=== PATIENT | male | born 1955 | race Caucasian/White ===

== ENCOUNTER 2019-08-03 19:57 | Emergency (ER) | payer MEDICARE ==
--- NOTE | 2019-08-03 21:16 | ED ---
General Adult HPI - General Chief complaint: GI Bleed Stated complaint: spitting up blood Time Seen by Provider: 08/03/19 20:50 Source: patient Mode of arrival: ambulatory Limitations: no limitations - History of Present Illness Initial comments: Presents to the ED with his for evaluation. Patient states that he has been spitting out blood since about 5:30am this morning. Patient states that he has noted the blood mixed in with his saliva. Patient denies coughing or vomiting up blood. Patient states that he feels that the blood may be coming from his gums. Patient is on warfarin anticoagulation therapy. Patient is also complaining of having left lower leg swelling and pain for the past 3 weeks or so. Patient states that he has had a negative left lower extremity ultrasound (negative for DVT) and x-rays since his left lower leg pain and swelling began. Patient denies trauma or injury, fever or chills, headache, sore throat, dental pain, chest pain, dyspnea, dizziness or lightheadedness, cough or cold symptoms, abdominal pain, nausea or vomiting, diarrhea, bloody or melanotic stool, hematuria or urinary symptoms, decreased urine output, or any other symptoms or complaints. - Related Data Home Medications Medication Instructions Recorded Confirmed ALPRAZolam [Xanax] 0.5 mg PO DAILY PRN 08/03/19 08/03/19 Aspirin EC [Ecotrin Low Dose] 81 mg PO DAILY 08/03/19 08/03/19 Atorvastatin [Lipitor] 80 mg PO HS 08/03/19 08/03/19 Evolocumab [Repatha Syringe] 140 mg SQ Q14D 08/03/19 08/03/19 HYDROcodone/APAP 10-325MG [[place] 1 tab PO Q8H PRN 08/03/19 08/03/19 10-325] Nitroglycerin Sl Tabs [Nitrostat] 0.4 mg SUBLINGUAL Q5M PRN 08/03/19 08/03/19 Sotalol [Betapace] 80 mg PO BID 08/03/19 08/03/19 Tamsulosin HCl [Flomax] 0.4 mg PO HS 08/03/19 08/03/19 Warfarin [Coumadin] 5 mg PO [id number] 08/03/19 08/03/19 Warfarin [Coumadin] 37.5 mg PO MO 08/03/19 08/03/19 amLODIPine [Norvasc] 10 mg PO DAILY 08/03/19 08/03/19 Allergies Allergy/AdvReac Type Severity Reaction Status Date / Time bee venom protein (honey bee) Allergy Anaphylaxis Verified 08/03/19 20:36 Penicillins Allergy Swelling Verified 08/03/19 20:36 morphine AdvReac Nausea & Verified 08/03/19 20:36 Vomiting Review of Systems ROS Statement: Those systems with pertinent positive or pertinent negative responses have been documented in the HPI. ROS Other: All systems not noted in ROS Statement are negative. Past Medical History Past Medical History: Atrial Fibrillation, Hyperlipidemia, Hypertension, Osteoarthritis (OA) History of Any Multi-Drug Resistant Organisms: None Reported Past Surgical History: Coronary Bypass/CABG, Joint Replacement, Orthopedic Surgery Additional Past Surgical History / Comment(s): Neck Past Psychological History: No Psychological Hx Reported Smoking Status: Former smoker Past Alcohol Use History: Occasional Past Drug Use History: None Reported General Exam Limitations: no limitations General appearance: alert, in no apparent distress Head exam: Present: atraumatic, normocephalic Eye exam: Present: normal appearance, EOMI ENT exam: Present: normal oropharynx, mucous membranes moist, other (There is a small amount of blood noted along the gumline of one of the patient's right upper molars) Neck exam: Absent: tenderness Respiratory exam: Present: normal lung sounds bilaterally. Absent: respiratory distress, wheezes, rales, rhonchi Cardiovascular Exam: Present: regular rate, normal rhythm, normal heart sounds, other (Normal radial pulses bilaterally) GI/Abdominal exam: Present: soft. Absent: distended, tenderness Extremities exam: Present: other (Mild left calf tenderness; no left lower extremity swelling is appreciated; normal left dorsalis pedis pulse). Absent: p edal edema Neurological exam: Present: alert, oriented X3. Absent: motor sensory deficit Psychiatric exam: Present: normal affect, normal mood Skin exam: Present: warm, dry, intact, normal color Course Vital Signs 08/03/19 08/03/19 08/04/19 20:05 23:06 00:00 Temperature 98.4 F 98.8 F 98.6 F Pulse Rate 75 53 L 56 L Respiratory 16 17 18 Rate Blood Pressure 146/76 137/83 157/75 O2 Sat by Pulse 95 96 96 Oximetry Medical Decision Making - Medical Decision Making Patient has not had any active oral bleeding while in the ED, and he has not been spitting out any blood while in the ED. I suspect that the patient's reported oral bleeding is coming from the gumline of one of his right upper molars. Patient's INR is 3.0. I have explained to the patient that I do not feel that he should hold his warfarin at this time given that he does not currently have any active bleeding or sign of hemodynamic instability. Patient reports that he recently had a negative left lower extremity ultrasound for DVT, as well as negative left lower leg x-rays. I think that a left lower extremity DVT would be very unlikely given that the patient's INR is 3.0. Patient's creatine kinase is also within normal limits, and I do not suspect rhabdomyolysis. Patient denies development of any new symptoms while in the ED. Patient and are aware of the patient's test results, and patient agrees with discharge home at this time. Patient was clearly explained return and follow-up instructions, and he was instructed to follow up closely with his PCP. Patient feels comfortable with this plan. - Lab Data Result diagrams: 08/03/19 20:56 08/03/19 20:56 Lab Results 08/03/19 08/03/19 08/03/19 Range/Units 20:56 20:56 20:56 WBC 4.6 (3.8-10.6) k/uL RBC 4.05 L (4.30-5.90) m/uL Hgb 12.5 L (13.0-17.5) gm/dL Hct 38.3 L (39.0-53.0) % MCV 94.5 (80.0-100.0) fL MCH 30.9 (25.0-35.0) pg MCHC 32.7 (31.0-37.0) g/dL RDW 13.6 (11.5-15.5) % Plt Count 149 L (150-450) k/uL Neutrophils % 54 % Lymphocytes % 27 % Monocytes % 9 % Eosinophils % 6 % Basophils % 1 % Neutrophils # 2.5 (1.3-7.7) k/uL Lymphocytes # 1.2 (1.0-4.8) k/uL Monocytes # 0.4 (0-1.0) k/uL Eosinophils # 0.3 (0-0.7) k/uL Basophils # 0.1 (0-0.2) k/uL PT (9.0-12.0) sec INR (<1.2) APTT (22.0-30.0) sec Sodium 138 (137-145) mmol/L Potassium 4.1 (3.5-5.1) mmol/L Chloride 104 (98-107) mmol/L Carbon Dioxide 26 (22-30) mmol/L Anion Gap 8 mmol/L BUN 19 (9-20) mg/dL Creatinine 0.80 (0.66-1.25) mg/dL Est GFR (CKD-EPI)AfAm >90 (>60 ml/min/1.73 sqM) Est GFR (CKD-EPI)NonAf >90 (>60 ml/min/1.73 sqM) Glucose 109 H (74-99) mg/dL Plasma Lactic Acid Maulik 0.9 (0.7-2.0) mmol/L Calcium 8.5 (8.4-10.2) mg/dL Total Bilirubin 0.3 (0.2-1.3) mg/dL AST 26 (17-59) U/L ALT 33 (21-72) U/L Alkaline Phosphatase 96 (38-126) U/L Creatine Kinase 59 (55-170) U/L Total Protein 6.9 (6.3-8.2) g/dL Albumin 3.9 (3.5-5.0) g/dL Lipase 41 (23-300) U/L Blood Type Blood Type Confirm Blood Type Recheck Bld Type Recheck Status Antibody Screen Spec Expiration Date 08/03/19 08/03/19 08/03/19 Range/Units 20:56 20:56 20:56 WBC (3.8-10.6) k/uL RBC (4.30-5.90) m/uL Hgb (13.0-17.5) gm/dL Hct (39.0-53.0) % MCV (80.0-100.0) fL MCH (25.0-35.0) pg MCHC (31.0-37.0) g/dL RDW (11.5-15.5) % Plt Count (150-450) k/uL Neutrophils % % Lymphocytes % % Monocytes % % Eosinophils % % Basophils % % Neutrophils # (1.3-7.7) k/uL Lymphocytes # (1.0-4.8) k/uL Monocytes # (0-1.0) k/uL Eosinophils # (0-0.7) k/uL Basophils # (0-0.2) k/uL PT 28.6 H (9.0-12.0) sec INR 3.0 H (<1.2) APTT 39.1 H (22.0-30.0) sec Sodium (137-145) mmol/L Potassium (3.5-5.1) mmol/L Chloride (98-107) mmol/L Carbon Dioxide (22-30) mmol/L Anion Gap mmol/L BUN (9-20) mg/dL Creatinine (0.66-1.25) mg/dL Est GFR (CKD-EPI)AfAm (>60 ml/min/1.73 sqM) Est GFR (CKD-EPI)NonAf (>60 ml/min/1.73 sqM) Glucose (74-99) mg/dL Plasma Lactic Acid Maulik (0.7-2.0) mmol/L Calcium (8.4-10.2) mg/dL Total Bilirubin (0.2-1.3) mg/dL AST (17-59) U/L ALT (21-72) U/L Alkaline Phosphatase (38-126) U/L Creatine Kinase (55-170) U/L Total Protein (6.3-8.2) g/dL Albumin (3.5-5.0) g/dL Lipase (23-300) U/L Blood Type A Positive Blood Type Confirm A Positive Blood Type Recheck No Previous Record Bld Type Recheck Status CABO Indicated Antibody Screen NEGATIVE Spec Expiration Date 08/06/20192355 Disposition Clinical Impression: Gingival bleeding, Left leg pain Disposition: HOME SELF-CARE Condition: Stable Instructions (If sedation given, give patient instructions): Leg Pain (ED) Additional Instructions: Return to the ER immediately should you develop new or worsening pain, increased or persistent bleeding, shortness of breath, a fever, vomiting, feeling dizzy or faint, or new or worsening symptoms. Is patient prescribed a controlled substance at d/c from ED?: No Referrals: Charly Muir MD [Primary Care Provider] - 1-2 days Time of Disposition: 00:22
[2019-08-03 21:36] LABS: Basophils # (A) 0.1 k/uL (0-0.2); Basophils % (A) 1 %; Eosinophils # (A) 0.3 k/uL (0-0.7); Eosinophils % (A) 6 %; HCT 38.3 % (39.0-53.0); HGB 12.5 gm/dL (13.0-17.5); Lymphocytes # (A) 1.2 k/uL (1.0-4.8); Lymphocytes % (A) 27 %; MCH 30.9 pg (25.0-35.0); MCHC 32.7 g/dL (31.0-37.0); MCV 94.5 fL (80.0-100.0); Mean Platelet Volume 6.5; Monocytes # (A) 0.4 k/uL (0-1.0); Monocytes % (A) 9 %; Neutrophils # (A) 2.5 k/uL (1.3-7.7); Neutrophils % (A) 54 %; Platelet Count 149 k/uL (150-450); RBC 4.05 m/uL (4.30-5.90); RDW 13.6 % (11.5-15.5); WBC 4.6 k/uL (3.8-10.6)
[2019-08-03 21:57] LABS: ALT 33 U/L (21-72); AST 26 U/L (17-59); African American GFR (CKD) >90 (>60 ml/min/1.73 sqM); Albumin 3.9 g/dL (3.5-5.0); Alkaline Phosphatase 96 U/L (38-126); Anion Gap 8 mmol/L; Blood Urea Nitrogen 19 mg/dL (9-20); Calcium 8.5 mg/dL (8.4-10.2); Carbon Dioxide 26 mmol/L (22-30); Chloride 104 mmol/L (98-107); Creatine Kinase 59 U/L (55-170); Glucose 109 mg/dL (74-99); Potassium 4.1 mmol/L (3.5-5.1); Sodium 138 mmol/L (137-145); Total Bilirubin 0.3 mg/dL (0.2-1.3); Total Protein 6.9 g/dL (6.3-8.2)
[2019-08-03 21:59] LABS: Partial Thromboplastin Time 39.1 sec (22.0-30.0); Prothrombin Time 28.6 sec (9.0-12.0)
[2019-08-04 00:02] VITALS: BP 157/75; PULSE 56; RESP 18; TEMP 98.6
== END 2019-08-04 00:27 | disposition home or self-care (01) ==
LOC: EC 19:57
DX: K06.8 Other specified disorders of gingiva and edentulous alveolar ridge (principal); M79.605 Pain in left leg; I48.91 Unspecified atrial fibrillation; I10 Essential (primary) hypertension; E78.5 Hyperlipidemia, unspecified; Z79.82 Long term (current) use of aspirin; Z79.01 Long term (current) use of anticoagulants; Z79.899 Other long term (current) drug therapy; Z88.0 Allergy status to penicillin; Z88.5 Allergy status to narcotic agent; Z91.030 Bee allergy status; Z87.891 Personal history of nicotine dependence; Z95.1 Presence of aortocoronary bypass graft
CPT/HCPCS: 36415; 80053; 82550; 83605; 83690; 85025; 85610; 85730; 86850; 86900; 86901; 99283